=== PATIENT | female | born 1935 | race Caucasian/White ===

== ENCOUNTER 2018-04-20 04:51 | Emergency (ER) | payer MEDICARE, OTHER ==
[~2018-04-20] VITALS: Ht 160 cm; Wt 66.0 kg
[~2018-04-20 04:51] MED LIST: AGGRENOX 200/251 CAP PO; ATIVAN0.5 MG PO; EFFEXOR37.5 MG OR; LIPITOR20 MG OR; METO50TA52 PO
[2018-04-20] MEDS ORDERED: CYMBALTA60 MG PO (05:15)
[2018-04-20] MEDS ORDERED: ZOCOR20 M1 PO (05:15)
[2018-04-20] MEDS ORDERED: PRESERVISION AREDS 2 PO (05:18)
[2018-04-20 05:38] LABS: HEMATOCRIT 40.5 % (37.0-47.0); HEMOGLOBIN 13.8 g/dl (12.0-16.0); IMMATURE GRANULOCYTES 0.2 % (0.0-5.0); MEAN CORPUSCULAR HGB 34.4 pG CALC (26.0-32.0); MEAN CORPUSCULAR HGB CONC 34.1 g/L CALC (32.0-36.0); NEUT# 2.34 thou/uL (2.00-7.15); RED BLOOD COUNT 4.01 mill/uL (4.20-5.60); RED CELL DISTRI WIDTH 12.3 % (11.5-15.5)
[2018-04-20 05:51] LABS: ALBUMIN 4.2 g/dL (3.2-5.0); ALKALINE PHOSPHATASE 65 u/l (38-126); BILIRUBIN, TOTAL 0.5 mg/dL (0.0-1.4); BUN 14 mg/dL (8-23); BUN/CREATININE RATIO 24 (12-20 (CALC)); CARBON DIOXIDE 28 mmol/l (22-30); CHLORIDE 104 mmol/l (95-108); CREATININE 0.6 mg/dL (0.5-1.0); GFR > 60 ML/MIN (>=60 (CALC)); GFR FOR AFR.AMER. > 60 ML/MIN (>=60 (CALC)); SGOT/AST 31 u/l (9-36); SODIUM 141 mmol/l (137-146)
[2018-04-20 05:54] LABS: ANION GAP 13 (6-22 (CALC)); POTASSIUM 3.5 mmol/l (3.5-5.1)
[2018-04-20 06:03] LABS: MYOGLOBIN 34 ng/mL (0 - 62)
[2018-04-20 06:27] LABS: URINE BILIRUBIN - DIPSTICK NEGATIVE (NEGATIVE); URINE BLOOD DIPSTICK NEGATIVE (NEGATIVE); URINE COLOR YELLOW; URINE GLUCOSE - DIPSTICK NEGATIVE (NEGATIVE); URINE KETONE NEGATIVE (NEGATIVE); URINE LEUK ESTERASE NEGATIVE (NEGATIVE); URINE NITRITE - DIPSTICK NEGATIVE (Negative); URINE PH 6.5 (4.5-8.0); URINE PROTEIN - DIPSTICK NEGATIVE (NEG-TRACE); URINE UROBILINOGEN - DIPSTICK 0.2 E.U./dL (0.2)
[2018-04-20] MEDS ORDERED: ANTIVERT PO (07:34)
[2018-04-20 07:43] VITALS: BP 138/88
[2018-04-21] MEDS ORDERED: AZITHROMYCIN500 MG PO (14:22)
== END 2018-04-20 08:00 | disposition home or self-care (01) ==
LOC: ED 04:51
PROVIDERS: Emergency Medicine
DX: R42 Dizziness and giddiness (principal); I10 Essential (primary) hypertension; R51 Headache

== ENCOUNTER 2018-04-20 12:26 | Observation (INO) | payer MEDICARE, OTHER ==
[~2018-04-20] VITALS: Ht 160 cm; Wt 70.0 kg
[~2018-04-20 12:26] MED LIST changes: +ANTIVERT PO; +CYMBALTA60 MG PO; +PRESERVISION AREDS 2 PO; +ZOCOR20 M1 PO
[2018-04-20 13:20] LABS: HEMATOCRIT 42.6 % (37.0-47.0); HEMOGLOBIN 14.5 g/dl (12.0-16.0); IMMATURE GRANULOCYTES 0.2 % (0.0-5.0); MEAN CELL VOLUME 100.2 fL CALC (80.0-100.0); MEAN CORPUSCULAR HGB 34.1 pG CALC (26.0-32.0); NEUT# 3.6 thou/uL (2.00-7.15); RED BLOOD COUNT 4.25 mill/uL (4.20-5.60); RED CELL DISTRI WIDTH 12.5 % (11.5-15.5)
[2018-04-20 13:34] LABS: ANION GAP 13 (6-22 (CALC)); BUN 12 mg/dL (8-23); BUN/CREATININE RATIO 24 (12-20 (CALC)); CARBON DIOXIDE 27 mmol/l (22-30); CHLORIDE 105 mmol/l (95-108); CREATININE 0.5 mg/dL (0.5-1.0); GFR > 60 ML/MIN (>=60 (CALC)); GFR FOR AFR.AMER. > 60 ML/MIN (>=60 (CALC)); SODIUM 141 mmol/l (137-146)
[2018-04-20 15:48] VITALS: BP 185/89
[2018-04-20 16:14] VITALS: BP 157/87
[2018-04-20 17:10] VITALS: BP 152/73
[2018-04-20 19:35] VITALS: BP 129/83
[2018-04-21] VITALS: BP 136/80
[2018-04-21 04:15] VITALS: BP 165/75
[2018-04-21 09:52] VITALS: BP 123/74
[2018-04-21 11:45] VITALS: BP 123/74
[2018-04-21] MEDS ORDERED: AZITHROMYCIN500 MG PO (14:22)
== END 2018-04-21 15:14 | disposition home or self-care (01) ==
LOC: ED 12:26 → ED-I 12:56 → ED 12:56 → ED-I 13:50 → ED 14:05 → MS2 14:06
PROVIDERS: Family Medicine; ADMIT Internal Medicine Nephrology; ATTEND Internal Medicine Nephrology
DX: J01.90 Acute sinusitis, unspecified (principal); I10 Essential (primary) hypertension; E78.5 Hyperlipidemia, unspecified; F41.8 Other specified anxiety disorders; Z86.73 Personal history of transient ischemic attack (TIA), and cerebral infarction without residual deficits; R42 Dizziness and giddiness; R51 Headache